=== PATIENT | male | born 1950 | race Caucasian/White ===

== ENCOUNTER 2017-10-27 00:21 | Emergency (ER) | payer OTHER ==
[2017-10-27] MEDS ORDERED: DEXAMETHASONE 10 MG/ML VIAL IVP ONE (00:28)
[2017-10-27] MEDS ORDERED: FAMOTIDINE 20 MG/2 ML SDV IVP ONE (00:29)
--- NOTE | 2017-10-27 00:32 | EDPHY ---
H & P Stated Complaint: sore throat Time Seen by Provider: 10/27/17 00:28 HPI/ROS: HPI The patient presents with sore throat and difficulty breathing beginning at about 6:00 p.m. Tonight. The patient was feeling well earlier in the day and then began to develop a sore throat. He then thought that his glands were swollen and had difficulty sleeping. He noticed that he had a muffled voice. He has been able to tolerate his secretions but has not been able to take anything by mouth. He has no prior history of similar. He has been taking a statin though has not been taking any other medications. He has not had any new foods lately or history of allergic reactions.. REVIEW OF SYSTEMS 10 systems were reviewed and negative with the exception of the elements mentioned in the history of present illness. PMHx: Hyperlipidemia Soc Hx: Here with his PHYSICAL General Appearance: Alert, no distress Eyes: Pupils equal and round no pallor or injection ENT, Mouth: Mucous membranes moist, posterior pharynx is diffusely edematous with uvular edema, there is no tongue edema, the patient is tolerating secretions Respiratory: There are no retractions, lungs are clear to auscultation Cardiovascular: Regular rate and rhythm Gastrointestinal: Abdomen is soft and non-tender, no masses, bowel sounds normal Neurological: A&O, moves all extremities Skin: Warm and dry, no rashes Musculoskeletal: Neck is supple non tender Extremities: symmetrical, full range of motion Psychiatric: Patient is oriented X 3, there is no agitation Source: Patient Exam Limitations: No limitations Constitutional: Initial Vital Signs Temperature (C) 36.6 C 10/27/17 00:25 Heart Rate 69 10/27/17 00:25 Respiratory Rate 16 10/27/17 00:25 Blood Pressure 198/100 H 10/27/17 00:25 O2 Sat (%) 97 10/27/17 00:25 O2 Delivery Mode Room Air Allergies/Adverse Reactions: No Known Allergies Allergy (Unverified 10/27/17 00:29) Home Medications: Medication Instructions Recorded Dexamethasone [Decadron 4 MG (*)] 8 mg PO Q6H 2 Days tab 10/27/17 SIMVASTATIN 10/27/17 Medical Decision Making - Diagnostics Imaging Results: CT neck with IV contrast demonstrates right-sided parapharyngeal edema, discussed with Dr. Mojica of Radiology. Differential Diagnosis: This is a 67-year-old male with history of hyperlipidemia who presents with posterior pharyngeal edema causing sore throat and muffled voice. He does not look systemically ill and has normal vital signs. Differential diagnosis includes angioedema, anaphylaxis, deep space neck infection. In the emergency department, IV line was established and the patient was given Decadron, Benadryl, Pepcid. He was monitored very closely and did not develop any worsening symptoms. He was able to manage his secretions. After about 30 min his symptoms improved and he was stable enough to go to the CT scanner which revealed parapharyngeal edema without any obvious deep space neck infection. The patient was monitored in the emergency department for a total of 6 hr. He had significant improvement in his symptoms. He did have pain from a sore throat. His rapid strep was negative. I will send him home with a course of Decadron and Benadryl. On further history, the patient says he has had intermittent right eyelid swelling as well as occasional mild lip swelling. I suspect he may have angioedema though the etiology of this is unclear. Because of this, I would like for him to follow up with his primary care doctor. He may need referral to specialist. - Data Points Laboratory Results: Laboratory Results 10/27/17 00:45 10/27/17 10/27/17 10/27/17 Unknown 00:51 00:45 WBC RBC Hgb POC Hgb 17.3 gm/dL gm/dL (13.7-17.5) Hct POC Hct 51 % % (40-51) MCV MCH MCHC RDW Plt Count MPV Neut % (Auto) Lymph % (Auto) Cache % (Auto) Eos % (Auto) Baso % (Auto) Nucleat RBC Rel Count Absolute Neuts (auto) Absolute Lymphs (auto) Absolute Monos (auto) Absolute Eos (auto) Absolute Basos (auto) Absolute Nucleated RBC Immature Gran % Immature Gran # POC Sodium 144 mEq/L mEq/L (135-145) POC Potassium 3.6 mEq/L mEq/L (3.3-5.0) POC Chloride 105 mEq/L mEq/L (97-110) POC BUN 17 mg/dL mg/dL (7-23) POC Creatinine 1.0 mg/dL mg/dL (0.7-1.3) POC Glucose 89 mg/dL mg/dL (70-100) Group A Strep Screen NEGATIVE (NEGATIVE) Group A Strep DNA Pending 10/27/17 00:45 WBC 7.94 10^3/uL 10^3/uL (3.80-9.50) RBC 5.30 10^6/uL 10^6/uL (4.40-6.38) Hgb 16.8 g/dL g/dL (13.7-17.5) POC Hgb Hct 49.0 % % (40.0-51.0) POC Hct MCV 92.5 fL fL (81.5-99.8) MCH 31.7 pg pg (27.9-34.1) MCHC 34.3 g/dL g/dL (32.4-36.7) RDW 12.6 % % (11.5-15.2) Plt Count 231 10^3/uL 10^3/uL (150-400) MPV 10.3 fL fL (8.7-11.7) Neut % (Auto) 61.3 % % (39.3-74.2) Lymph % (Auto) 24.1 % % (15.0-45.0) Cache % (Auto) 11.1 % % (4.5-13.0) Eos % (Auto) 2.4 % % (0.6-7.6) Baso % (Auto) 0.6 % % (0.3-1.7) Nucleat RBC Rel Count 0.0 % % (0.0-0.2) Absolute Neuts (auto) 4.87 10^3/uL 10^3/uL (1.70-6.50) Absolute Lymphs (auto) 1.91 10^3/uL 10^3/uL (1.00-3.00) Absolute Monos (auto) 0.88 10^3/uL H 10^3/uL (0.30-0.80) Absolute Eos (auto) 0.19 10^3/uL 10^3/uL (0.03-0.40) Absolute Basos (auto) 0.05 10^3/uL 10^3/uL (0.02-0.10) Absolute Nucleated RBC 0.00 10^3/uL 10^3/uL (0-0.01) Immature Gran % 0.5 % % (0.0-1.1) Immature Gran # 0.04 10^3/uL 10^3/uL (0.00-0.10) POC Sodium POC Potassium POC Chloride POC BUN POC Creatinine POC Glucose Group A Strep Screen Group A Strep DNA Medications Given: Discontinued Medications Acetaminophen (Tylenol) 1,000 mg PO EDNOW ONE Stop: 10/27/17 04:20 Last Admin: 10/27/17 04:43 Dose: 1,000 mg Dexamethasone (Decadron Injection) 10 mg IVP EDNOW ONE Stop: 10/27/17 00:29 Last Admin: 10/27/17 00:41 Dose: 10 mg Dexamethasone (Decadron) 8 mg PO EDNOW ONE Stop: 10/27/17 04:24 Last Admin: 10/27/17 06:09 Dose: 8 mg Diphenhydramine HCl (Benadryl Injection) 50 mg IVP EDNOW ONE Stop: 10/27/17 00:30 Last Admin: 10/27/17 00:41 Dose: 50 mg Diphenhydramine HCl (Benadryl) 25 mg PO EDNOW ONE Stop: 10/27/17 04:20 Last Admin: 10/27/17 06:09 Dose: 25 mg Famotidine (Pepcid) 20 mg IVP EDNOW ONE Stop: 10/27/17 00:30 Last Admin: 10/27/17 00:41 Dose: 20 mg Ibuprofen (Motrin) 400 mg PO EDNOW ONE Stop: 10/27/17 04:20 Last Admin: 10/27/17 04:43 Dose: 400 mg Point of Care Test Results: Chemistry 10/27/17 00:51 POC Sodium 144 mEq/L mEq/L (135-145) POC Potassium 3.6 mEq/L mEq/L (3.3-5.0) POC Chloride 105 mEq/L mEq/L (97-110) POC BUN 17 mg/dL mg/dL (7-23) POC Creatinine 1.0 mg/dL mg/dL (0.7-1.3) POC Glucose 89 mg/dL mg/dL (70-100) ISTAT H&H 10/27/17 00:51 POC Hgb 17.3 gm/dL gm/dL (13.7-17.5) POC Hct 51 % % (40-51) Departure - Departure Disposition: Home, Routine, Self-Care Clinical Impression: Angioedema, Pharyngeal edema Condition: Good Instructions: Angioedema (ED) Additional Instructions: I recommend you take Benadryl 25 mg every 6 hr until the swelling has improved. I have given you a prescription for Decadron which is a steroid to help with the swelling as well. You can stop taking this when her symptoms improved. For the pain you are having in the throat I recommend you take ibuprofen 400 mg with acetaminophen 650 mg every 6 hr. If you develop a fever, worsening neck pain, any trouble breathing, changes in her voice, you need to return to the emergency department immediately. Otherwise, I would like for you to follow up with your primary care physician in the next 1 week for recheck. Referrals: Patient,NotPresent [Unknown] - As per Instructions Prescriptions: Dexamethasone [Decadron 4 MG (*)] 8 mg PO Q6H 2 Days tab
[2017-10-27 00:52] LABS: PLATELET COUNT 231 10^3/uL (150-400)
[2017-10-27] MEDS ORDERED: IOPAMIDOL (ISOVUE-300) 100 ML BTL ONE (01:03)
[2017-10-27] MEDS ORDERED: IBUPROFEN 200 MG TAB PO ONE (04:19)
[2017-10-27] MEDS ORDERED: diphenhydrAMINE 25 MG CAP PO ONE (04:19)
[2017-10-27] MEDS ORDERED: ACETAMINOPHEN 500 MG TAB PO ONE (04:19)
[2017-10-27] MEDS ORDERED: DEXAMETHASONE 4 MG TAB PO ONE (04:23)
[2017-10-27 06:15] VITALS: BP 130/79
== END 2017-10-27 06:15 | disposition home or self-care (01) ==
DX: R07.0 Pain in throat (principal); R06.00 Dyspnea, unspecified; R60.0 Localized edema; E78.5 Hyperlipidemia, unspecified
CPT/HCPCS: 82435-PO; 82565-PO; 82947-PO; 84132-PO; 84295-PO; 84520-PO; 85014-PO; 96374; J1100; J1200; Q9967